=== PATIENT | female | born 1990 | race American Indian/Alaskan Native ===

== ENCOUNTER 2017-08-05 17:12 | Outpatient (CLI) | payer MEDICAID ==
[2017-08-05 17:50] VITALS: BP 120/56
== END 2017-08-05 18:39 | disposition left against medical advice (07) ==
LOC: TRG 17:12 → LD 17:13 → TRG 18:39
PROVIDERS: ATTEND Obstetrics & Gynecology
DX: O99.333 Smoking (tobacco) complicating pregnancy, third trimester (principal); O47.03 False labor before 37 completed weeks of gestation, third trimester; Z3A.36 36 weeks gestation of pregnancy